=== PATIENT | female | born 1985 | race Caucasian/White ===

== ENCOUNTER → 2020-07-19 10:31 | Outpatient (BNVA) | payer OTHER, SELFPAY | PROVIDERS: PCP Surgery; Visit Provider Urology | DX: N31.8 Other neuromuscular dysfunction of bladder (principal) | CPT/HCPCS: 81002; 99212 ==

== ENCOUNTER 2020-08-10 06:09 | Day surgery (SDC) | payer OTHER, SELFPAY ==
[2020-08-03 20:19] VITALS: BMI 29.1
--- NOTE | 2020-08-09 10:01 | HO.ANESPROP2 ---
Documented by User: Amina Michael 08/09/20 10:04 HPI - Anesthesia Eval Consult details Narrative: 35yo F for Cystoscopy with Botox s/p [id number] with GA-LMA 4 PMFSH Past Medical History Medical History Anxiety Bladder hypertonicity delivery delivered Depression Frequency of urination [place] disease Interstitial cystitis Smoker Surgical History Surgical History History of bladder surgery History of cholecystectomy History of nasal surgery Social History Social History Smoking Status: Current every day smoker Packs Per Day: 1.5 Cigarettes Per Day: 30.0 Years Smoked: 25 Smoked in Last 30 Days: Yes Patient Interested in Nicotine Replacement: No Patient Given Instructions on How to Stop Smoking: No Use of substances other than those prescribed or required for medical reasons: No Advance Directives: No Advance Directives Information Provided: No Advance Directives on File: No Meds Allergies Allergy/AdvReac Type Severity Reaction Status Date / Time amoxicillin [From AUGMENTIN] Allergy Intermediate HIVES Verified 08/10/20 07:01 clavulanic acid Allergy Intermediate HIVES Verified 08/10/20 07:01 [From AUGMENTIN] kiwi [KIWI] Allergy Intermediate HIVES Verified 08/10/20 07:01 Home Medications Medication Instructions Recorded Confirmed Type ibuprofen 800 mg tablet 800 mg PO TID PRN 07/16/20 08/03/20 History Exam Exam Date and Time: August 09, 2020 1001 Height,Weight and Vital Signs: Height 5 ft 7 in Weight 84.368 kg Assessment and Plan Assessment Anesthesia Assessment: Chart Reviewed Documented by User: Shefali Aragon 08/10/20 07:11 PMFSH Past Medical History Medical History Anxiety Bladder hypertonicity delivery delivered Depression Frequency of urination [place] disease Interstitial cystitis Smoker Surgical History Surgical History History of bladder surgery History of cholecystectomy History of nasal surgery Social History Social History Smoking Status: Current every day smoker Packs Per Day: 1.5 Cigarettes Per Day: 30.0 Years Smoked: 25 Smoked in Last 30 Days: Yes Patient Interested in Nicotine Replacement: No Patient Given Instructions on How to Stop Smoking: No Use of substances other than those prescribed or required for medical reasons: No Advance Directives: No Advance Directives Information Provided: No Advance Directives on File: No Meds Allergies Allergy/AdvReac Type Severity Reaction Status Date / Time amoxicillin [From AUGMENTIN] Allergy Intermediate HIVES Verified 08/10/20 07:01 clavulanic acid Allergy Intermediate HIVES Verified 08/10/20 07:01 [From AUGMENTIN] kiwi [KIWI] Allergy Intermediate HIVES Verified 08/10/20 07:01 Home Medications Medication Instructions Recorded Confirmed Type ibuprofen 800 mg tablet 800 mg PO TID PRN 07/16/20 08/03/20 History Exam Airway Mallampati Class: II TM Dist: >3cm Neck ROM: Full Assessment and Plan Assessment Anesthesia Assessment: Anesthesia Plan Discussed, Smoking Cess. Discussed and Chart Reviewed Final Anesthetic Review NPO: Yes ASA Class: II Final Preanesthetic Review: No Changes in Pt Med Stat, Meds/Allgs Chart Reviewed, Consent Obtained/Reviewed and Anes Risks/Benef Reviewed Patient Risk: Low Procedure Risk: Low Assessment/Block/Sedation in SS: Assess/Block/Sedation-SS Anesthetic Plan Anesthetic Plan: MAC: Disposition: Standard PACU
[2020-08-10 06:30] VITALS: BP 119/79; PULSE 77; RESP 18; TEMP 36.2; O2SAT 99
[2020-08-10 06:47] LABS: UPreg QC Valid YES; Urine Pregnancy NEGATIVE (NEGATIVE)
[2020-08-10] MEDS: Lactated Ringers 1,000 ML 100 ML IVCONT (06:56)
--- NOTE | 2020-08-10 07:27 | MHC.SHP ---
Pre-Procedural Eval Section A The patient is an INPATIENT: No The History & Physical has been completed within 30 days and I have reviewed it.: Yes Section B Chief Complaint: Bladder Dysfunction Allergies: Allergies Allergy/AdvReac Type Severity Reaction Status Date / Time amoxicillin [From AUGMENTIN] Allergy Intermediate HIVES Verified 08/10/20 07:01 clavulanic acid Allergy Intermediate HIVES Verified 08/10/20 07:01 [From AUGMENTIN] kiwi [KIWI] Allergy Intermediate HIVES Verified 08/10/20 07:01 Plan Diagnosis/Plan: Unchanged I have reviewed the history and physical and performed a pertinent physical examination on my patient. No changes have occurred unless specified.
--- NOTE | 2020-08-10 07:47 | PM.OP ---
Brief Operative Note Date of Service: 08/10/20 Pre-op diagnosis: bladder hypertonicity Post-op diagnosis: same Procedure: cysto bladder botox Surgeon: Abhijit Cash III, MD Anesthesia: MAC Estimated blood loss (mL): 0 Pathology: none sent Condition: stable Disposition: same day
[2020-08-10 07:50] VITALS: BP 97/53; PULSE 82; RESP 16; TEMP 36.6; O2SAT 95
[2020-08-10 08:05] VITALS: BP 104/72; PULSE 73; RESP 16; TEMP 36.1; O2SAT 100
--- NOTE | 2020-08-10 08:49 | HO.POSTANES ---
Post Anesthesia Evaluation Post Anesthesia Evaluation Vital Signs: Vital Signs Temp Pulse Resp BP Pulse Ox 08/10/20 08:05 97 F 73 16 104/72 100 08/10/20 07:50 98 F 82 16 97/53 L 95 08/10/20 06:30 97.1 F 77 18 119/79 99 Anesthesia: General (tivA) Mental Status: Awake Pain Control: Satisfactory Nausea/Vomiting: None Hydration: Adequate Anesthesia-Related Issues: No Anes. Related Issues
--- NOTE | 2020-11-25 13:54 | OP_ITS ---
SURGEON: Abhijit Cash III, MD PREOPERATIVE DIAGNOSIS: POSTOPERATIVE DIAGNOSIS: PROCEDURE PERFORMED: Cystoscopy with injection of 100 units of Botox into the bladder. ESTIMATED BLOOD LOSS: None. COMPLICATIONS: None. ANESTHESIA: MAC. ASSISTANTS: SPECIMENS: PREOPERATIVE DIAGNOSES: Bladder hypertonicity, urge incontinence. POSTOPERATIVE DIAGNOSES: Bladder hypertonicity, urge incontinence. SPECIMEN: None. DESCRIPTION OF PROCEDURE: The patient was taken to the operating room. After adequate anesthesia was obtained, a time-out was done demonstrating correct patient and correct procedure. The patient subsequently underwent cystoscopy which demonstrated an otherwise normal-appearing bladder. No stones, no foreign bodies, no mucosal lesions. The patient had 100 units injected throughout her bladder with the exception of the trigone. The patient tolerated the procedure well. There were no complications. There was no active bleeding. Abhijit Cash III, MD SS/MODL / [id number]
== END 2020-08-10 09:00 | disposition home or self-care (01) ==
PROVIDERS: Nurse Practitioner; Visit Provider Urology
PROC: 0TJB8ZZ Inspection of Bladder, Via Natural or Artificial Opening Endoscopic (ICD-10-PCS; CPT 52000; principal; 2020-08-10 07:30)
DX: N31.8 Other neuromuscular dysfunction of bladder (principal); R39.15 Urgency of urination; G10 Huntington's disease; F41.9 Anxiety disorder, unspecified; Z90.49 Acquired absence of other specified parts of digestive tract; Z79.1 Long term (current) use of non-steroidal anti-inflammatories (NSAID); Z88.1 Allergy status to other antibiotic agents; F17.210 Nicotine dependence, cigarettes, uncomplicated
CPT/HCPCS: 52287; 81025; J0585; J2250; J2405; J3010

== ENCOUNTER → 2020-09-10 09:08 | Outpatient (BNVA) | payer OTHER, SELFPAY | PROVIDERS: PCP Pediatrics Adolescent Medicine; Visit Provider Urology | DX: N30.10 Interstitial cystitis (chronic) without hematuria (principal); G10 Huntington's disease; N31.8 Other neuromuscular dysfunction of bladder | CPT/HCPCS: 51798; 81002; 99212 ==

== ENCOUNTER 2020-10-11 07:17 | Day surgery (SDC) | payer OTHER, SELFPAY ==
[2020-09-21 11:40] VITALS: BMI 29.1
--- NOTE | 2020-10-08 12:29 | P.CONAN_ITS ---
Documented by User: Amina Michael 10/08/20 12:30 HPI - Anesthesia Eval Consult details Narrative: 35yo F for Interstim Generator Removal PMFSH Active Problems Active Problems: All Active Problems (Updated 09/21/20 @ 11:39 by Mikayla Cabrera) [place] disease (Acute) Bladder hypertonicity (Acute) Past Medical History Medical History Agoraphobia Anxiety Bladder hypertonicity delivery delivered Depression Fibromyalgia Frequency of urination History of kidney stones [place] disease Interstitial cystitis PTSD (post-traumatic stress disorder) Smoker Surgical History Surgical History (Updated 09/21/20 @ 11:38 by Mikayla Cabrera) History of bladder surgery History of cholecystectomy History of nasal surgery Hx of cystoscopy Social History Social History Are you a primary health care facilities inspector to a significant other at home: No Do you presently have visiting nurse or other home services: No Smoking Status: Current every day smoker Packs Per Day: 1.5 Cigarettes Per Day: 30.0 Years Smoked: 25 Smoked in Last 30 Days: Yes Patient Interested in Nicotine Replacement: No Patient Given Instructions on How to Stop Smoking: No Use of substances other than those prescribed or required for medical reasons: No Advance Directives: No Advance Directives Information Provided: No Advance Directives on File: No Recently lost weight without trying: No Meds Allergies Allergy/AdvReac Type Severity Reaction Status Date / Time amoxicillin [From AUGMENTIN] Allergy Intermediate HIVES Verified 09/21/20 11:28 clavulanic acid Allergy Intermediate HIVES Verified 09/21/20 11:28 [From AUGMENTIN] kiwi [KIWI] Allergy Intermediate HIVES Verified 09/21/20 11:28 Home Medications Medication Instructions Recorded Confirmed Last Taken Type ibuprofen 800 mg tablet 800 mg PO TID PRN 07/16/20 09/21/20 08/02/20 History deutetrabenazine 12 mg tablet 24 mg PO BID 09/10/20 09/21/20 Unknown History Exam Exam Date and Time: October 08, 2020 1229 Height,Weight and Vital Signs: Height 5 ft 7 in Weight 84.3 kg Assessment and Plan Assessment Anesthesia Assessment: Chart Reviewed Documented by User: Tiffanie Elba 10/11/20 08:34 [facility] Past Medical History Medical History Agoraphobia Anxiety Bladder hypertonicity delivery delivered Depression Fibromyalgia Frequency of urination History of kidney stones [place] disease Interstitial cystitis PTSD (post-traumatic stress disorder) Smoker Surgical History Surgical History (Updated 09/21/20 @ 11:38 by Mikayla Cabrera) History of bladder surgery History of cholecystectomy History of nasal surgery Hx of cystoscopy Social History Social History Are you a primary health care facilities inspector to a significant other at home: No Do you presently have visiting nurse or other home services: No Smoking Status: Current every day smoker Packs Per Day: 1.5 Cigarettes Per Day: 30.0 Years Smoked: 25 Smoked in Last 30 Days: Yes Patient Interested in Nicotine Replacement: No Patient Given Instructions on How to Stop Smoking: No Use of substances other than those prescribed or required for medical reasons: No Advance Directives: No Advance Directives Information Provided: No Advance Directives on File: No Recently lost weight without trying: No Meds Allergies Allergy/AdvReac Type Severity Reaction Status Date / Time amoxicillin [From AUGMENTIN] Allergy Intermediate HIVES Verified 09/21/20 11:28 clavulanic acid Allergy Intermediate HIVES Verified 09/21/20 11:28 [From AUGMENTIN] kiwi [KIWI] Allergy Intermediate HIVES Verified 09/21/20 11:28 Home Medications Medication Instructions Recorded Confirmed Last Taken Type ibuprofen 800 mg tablet 800 mg PO TID PRN 07/16/20 09/21/20 08/02/20 History deutetrabenazine 12 mg tablet 24 mg PO BID 09/10/20 09/21/20 Unknown History Exam Airway Mallampati Class: II TM Dist: >3cm Neck ROM: Full Heart: RRR Lungs: CTA BL Assessment and Plan Assessment Anesthesia Assessment: Anesthesia Plan Discussed and Chart Reviewed Final Anesthetic Review NPO: Yes (Sip water with meds) ASA Class: III Final Preanesthetic Review: No Changes in Pt Med Stat and Consent Obtain ed/Reviewed Patient Risk: Intermediate Procedure Risk: Intermediate Anesthetic Plan Anesthetic Plan: MAC: Disposition: Standard PACU
[2020-10-11 07:59] LABS: UPreg QC Valid YES
[2020-10-11 08:02] LABS: Urine Pregnancy NEGATIVE (NEGATIVE)
[2020-10-11 08:03] VITALS: BP 119/65; PULSE 75; RESP 16; TEMP 36.6; O2SAT 98
[2020-10-11] MEDS: Lactated Ringers 1,000 ML 100 ML IVCONT (08:16)
[2020-10-11] MEDS: levoFLOXacin 500 MG TABLET PO (08:19)
--- NOTE | 2020-10-11 09:02 | MHC.SHP ---
Pre-Procedural Eval Section A The patient is an INPATIENT: No Changes since office visit: No Cold of Flu in the past 2 weeks, No New Medical Problems, No Changes in Medication and No Patient answered all questions The History & Physical has been completed within 30 days and I have reviewed it.: Yes Section B Chief Complaint: Dysfunction of bladder Allergies: Allergies Allergy/AdvReac Type Severity Reaction Status Date / Time amoxicillin [From AUGMENTIN] Allergy Intermediate HIVES Verified 09/21/20 11:28 clavulanic acid Allergy Intermediate HIVES Verified 09/21/20 11:28 [From AUGMENTIN] kiwi [KIWI] Allergy Intermediate HIVES Verified 09/21/20 11:28 Plan Diagnosis/Plan: Unchanged I have reviewed the history and physical and performed a pertinent physical examination on my patient. No changes have occurred unless specified. InterStim battery removal
--- NOTE | 2020-10-11 09:52 | P.OP_ITS ---
Operative Note Operative Note Date of Service: 10/11/20 Narrative: PreOperative Diagnosis: Removal of InterStim generator Post Operative Diagnosis: Removal of InterStim generator Procedure: Removal of InterStim generator Surgeon: Dr Nura Felix Anesthesia: Sedation Indications for procedure: InterStim generator. Nonfunctional. Would like removed. Does not want rep laced. Procedure: After informed consent was verified the patient was brought to the operating room and placed in a supine position. Anesthesia was administered per protocol. The patient was placed in prone position and prepped and draped in sterile fashion. Safety pause time-out was performed. Antibiotics have been given. A prior right-sided gluteal incision was seen. Local anesthetic was injected for Procedure pain relief. Using a 15 blade incision was taken down to the generator. The generator was removed and unscrewed. A capsule had formed around the generator. This capsule was then removed from surrounding tissue so that there was no chance of forming fluid collection. The area was irrigated The incision was closed with 3 deep interrupted Vicryl 3-0 sutures. A subcuticular Monocryl was placed with glue dressing. She tolerated procedure well was extubated in the operating room transferred in stable condition to the recovery area Pathology: none Drains: none
--- NOTE | 2020-10-11 09:52 | PM.OP ---
Brief Operative Note Date of Service: 10/11/20 Pre-op diagnosis: InterStim failure Post-op diagnosis: same Procedure: InterStim failure Surgeon: Nura Felix MD Anesthesia: MAC Estimated blood loss (mL): 0 Pathology: other Condition: stable Disposition: same day
[2020-10-11 09:58] VITALS: BP 91/53; PULSE 85; RESP 16; TEMP 36.9; O2SAT 95
[2020-10-11 10:13] VITALS: BP 111/70; PULSE 80; RESP 18; O2SAT 96
[2020-10-11] MEDS: NaPROXEN 500 MG TABLET PO (10:24)
[2020-10-11] MEDS: Acetaminophen 325 MG TABLET 650 MG PO (10:25)
[2020-10-11 10:28] VITALS: BP 119/81; PULSE 70; RESP 18; O2SAT 97
== END 2020-10-11 11:11 | disposition home or self-care (01) ==
PROVIDERS: Nurse Practitioner; Visit Provider Urology
PROC: (CPT 63685; principal; 2020-10-11 09:20)
DX: T85.113A Breakdown (mechanical) of implanted electronic neurostimulator, generator, initial encounter (principal); N31.8 Other neuromuscular dysfunction of bladder; F17.210 Nicotine dependence, cigarettes, uncomplicated; Y75.3 Surgical instruments, materials and neurological devices (including sutures) associated with adverse incidents; Y92.9 Unspecified place or not applicable; Y83.8 Other surgical procedures as the cause of abnormal reaction of the patient, or of later complication, without mention of misadventure at the time of the procedure
CPT/HCPCS: 64595; 81025; J2250; J3010

== ENCOUNTER 2025-07-20 10:39 | Outpatient (REF) | payer OTHER, SELFPAY ==
[2025-07-20 11:15] LABS: Alanine Aminotransferase 27 U/L (0-31); Albumin Level 3.9 g/dL (3.5-5.0); Alkaline Phosphatase 120 U/L (39-117); Aspartate Amino Transferase 20 U/L (5-31); Total Protein 6.5 g/dL (6.5-8.0)
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
--- OUTSIDE RECORDS SUMMARY | 2025-07-20 13:11 | XMS_ITS | Clinical Summary ---
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 Active azelastine (Astelin) 0.1 % nasal spray Administer 1 spray into each nostril 2 times daily. Use in each nostril as directed Active Calcium Oyster Shell 500 MG tablet Take 500 mg by mouth. Active alendronate-cho lecalciferol (Fosamax Plus D) 70-5600 MG-UNIT tablet Take 1 tablet by mouth every 7 (seven) days. Take in the morning with a full glass of water, on an empty stomach, and do not take anything else by mouth or lie down for the next 30 min. Active clonazePAM (KlonoPIN) 1 MG tablet Take 1 mg by mouth 2 times daily. Active deutetrabenazin e (Austedo) 6 MG tablet Take 6 mg by mouth. Active divalproex sprinkle (Depakote Sprinkle) [address] capsule Take 125 mg by mouth 2 times daily. Active DULoxetine (Cymbalta) [address] capsule Take 30 mg by mouth 2 times daily. Do not crush or chew. Active gabapentin (Neurontin) 100 MG capsule Take by mouth. Acti ve haloperidol (Haldol) 2 MG/ML solution Take 2 mg by mouth 2 times daily. Active loratadine (Claritin) 10 MG tablet Take 10 mg by mouth. Active Melatonin ER (Meladox) 3 MG tablet controlled-rele ase Take 3 mg by mouth. Active montelukast (Singulair) 10 MG tablet Take 10 mg by mouth. Active OLANZapine (ZyPREXA) 5 MG tablet at bedtime. Active polyethylene glycol, PEG, 3350 (Miralax) 17 g packet Take 17 g by mouth. Active prazosin (Minipress) 1 MG capsule Take 1 mg by mouth at bedtime. Active simvastatin (Zocor) 20 MG tablet Take 20 mg by mouth at bedtime. Active traMADol (Ultram) 50 MG tablet Take 50 mg by mouth. Active traZODone (Desyrel) 50 MG tablet Take 50 mg by mouth at bedtime. Active Encounters Date Type Department Care Team Description 07/07/2025 2:00 PM EST Office Visit [facility] [address] [place] [id number] Hallie Morel from Last 3 Months Social History Tobacco Use Types Packs/Day Years Used Date Smoking Tobacco: Never Assessed Comments Unknown Sex and Gender Information Value Date Recorded Sex Assigned at Female 07/02/2025 9:16 AM EST Legal Sex Female 9:13 AM EST Gender Identity Female 07/02/2025 9:16 AM EST Sexual Orientation Straight 07/02/2025 9: 16 AM EST Plan of Treatment Health Maintenance Due Date Last Done Comments Depression Screening 1983 HIV Screening 1983 SDOH Screening 1983 Disability Screening 1983 Alcohol/Substance Use Screening 1995 Tobacco Screening 1995 Family Planning (PISQ) 1998 HPV Vaccines (1 - 3-dose series) 1998 Hepatitis C Screening 2001 DTaP/Tdap/Td Vaccines (1 - Tdap) 2002 Hepatitis B Vaccines (1 of 3 - 19+ 3-dose series) 2002 Pap Smear 2004 Cervical Cancer Screening 2013 HPV/Cotest 2013 Mammogram 2023 Dental Oral Exam 01/06/2026 07/07/2025 Dental Prophylaxis 01/06/2026 07/07/2025 Dental X-Ray: Bitewings 07/08/2026 07/07/2025 Dental X-Ray: Full Mouth 07/08/2028 07/07/2025 Zoster Vaccines (1 of 2) 2033 RSV Patients and Pa tients Aged 60 years or older (1 - 1-dose 75+ series) 2058 Influenza Vaccine Completed 06/24/2025 COVID-19 Vaccine Completed 06/26/2025 HIB Vaccines Aged Out No longer eligi ble based on patient's age to complete this topic Hepatitis A Vaccines Aged Out No long er eligible based on patient's age to complete this topic IPV Vaccines Aged Out No longer eligi ble based on patient's age to complete this topic Meningococcal B Vaccine Aged Out No l onger eligible based on patient's age to complete this topic Meningococcal Vaccine Aged Out No brittaney mendel eligible based on patient's age to complete this topic Pneumococcal Vaccine: Pediat rics (0 to 5 Years) and At-Risk Patients (6 to 49) Years Aged Out No longer eligi ble based on patient's age to complete this topic RSV under 20 months Aged Out No longe r eligible based on patient's age to complete this topic Rotavirus Vaccines Aged Out No longer eligible based on patient's age to complete this topic Procedures Procedure Name Priority Date/Time Associated Diagnosis Comments COMPREHENSIVE ORAL EVALUATION - NEW OR ESTABLISHED PATIENT Routine 07/07/2025 2:00 PM EST INTRAORAL - COMPLETE SERIES OF RADIOGRAPHIC IMAGES Routine 07/07/2025 2:00 PM EST ORAL HYGIENE INSTRUCTIONS Routine 2024 2:00 PM EST Full TOPICAL APPLICATION OF FLUORIDE VARNISH Routine 07/07/2025 2:00 PM EST Full PROPHYLAXIS - ADULT Routine 025 2:00 PM EST 6 F COMPOSITE FILLING Routine 07/07/2025 12:00 AM EST 7 F COMPOSITE FILLING Routine 07/07/2025 12:00 AM EST 19 O AMALGAM FILLING Routine 07/07/2025 12:00 AM EST from Last 3 Months Advance Directives Documents on File Type Date 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
== END 2025-07-20 10:40 | disposition home or self-care (01) ==
LOC: HO.WMHL 10:39
PROVIDERS: Visit Provider Nurse Practitioner Family
DX: R79.89 Other specified abnormal findings of blood chemistry (principal)
CPT/HCPCS: 36415; 80076